=== PATIENT | female | born 1970 | race African-American/Black ===

== ENCOUNTER 2016-12-22 16:45 | Emergency (ER) | payer OTHER ==
[~2016-12-22] VITALS: Ht 154.9 cm; Wt 86.2 kg
[2016-12-22 17:19] LABS: BASO # 0.1 x10^3/uL (0.0-0.2); BASO % 1 % (0-3); EOS % 2 % (0-3); HEMATOCRIT 39.3 % (36.0-47.0); HEMOGLOBIN 12.9 g/dL (12.0-15.5); LYMPH # 3.4 x10^3/uL (1.0-4.8); LYMPH % 45 % (24-48); MEAN CORPUSCULAR HEMOGLOBIN 26 pg (25-35); MEAN CORPUSCULAR HGB CONC 33 g/dL (31-37); MEAN CORPUSCULAR VOLUME 80 fL (79-100); MONO % 7 % (0-9); NEUT % 45 % (31-73); PLATELET COUNT 284 x10^3/uL (140-400); RED BLOOD COUNT 4.91 x10^6/uL (3.50-5.40); RED CELL DISTRIBUTION WIDTH 14.2 % (11.5-14.5); WHITE BLOOD COUNT 7.5 x10^3/uL (4.0-11.0)
--- NOTE | 2016-12-22 17:19 | PHYS DOC ---
Adult General Chief Complaint Chief Complaint: CHEST PAIN HPI HPI Patient is a 46 year old female who presents to the ED with constant lower chest "heaviness" for about one week. She first noticed this a week ago, she does not recall what she was doing when it started. She did notice that if she bent over it seemed to get worse so she wondered if it was from her breasts being too heavy and she stopped bending over. The pain has not been severe but has been consistent for several days. She has not had any chest congestion, any shortness of air, cough, fever or chills. She's had no nausea but has been a little belchy. She did have this pain before quite a while ago, she can't remember when, the pain was worse, she was seen in an ER and she ended up having a stress test which was normal and they told her "it was stress". She states she was under a lot of stress at that time. She states she is under some stress at work right now. She is in good general health. She takes a cholesterol medicine daily. Review of Systems Review of Systems Constitutional: Denies fever or chills [] HENT: Denies nasal congestion Respiratory: Denies cough or shortness of breath [] Cardiovascular: As in history of present illness GI: Denies abdominal pain, nausea, vomiting, bloody stools or diarrhea [] : Denies dysuria or hematuria [] Musculoskeletal: Denies back pain or joint pain [] Integument: Denies rash or skin lesions [] Neurologic: Denies headache, focal weakness or sensory changes [] Allergies Allergies Allergies Coded Allergies Type Severity Reaction Last Updated Verified No Known Drug Allergies 12/22/16 No Physical Exam Physical Exam Constitutional: Well developed, well nourished, no acute distress, non-toxic appearance. It'll signs stable, alert, mentating normally, warm and dry. HENT: Normocephalic, atraumatic, bilateral external ears normal, nose normal. [ ] Eyes: conjunctiva normal, no discharge. [] Neck: Normal range of motion, no stridor. [] Cardiovascular:Heart rate regular rhythm, no murmur [] Lungs & Thorax: Bilateral breath sounds clear to auscultation [] Abdomen: Bowel sounds normal, soft, no tenderness, no masses, no pulsatile masses. No right upper quadrant tenderness, negative Mullins's. Skin: Warm, dry, no erythema, no rash. [] Extremities: No tenderness, no cyanosis, no clubbing, ROM intact, no edema. [] Neurologic: Alert and oriented X 3, normal motor function, no focal deficits noted. [] Current Patient Data Vital Signs Vital Signs Date Time Temp Pulse Resp B/P (MAP) Pulse Ox O2 Delivery O2 Flow Rate FiO2 12/22/16 17:26 74 17 123/77 (92) 98 Room Air 12/22/16 16:50 99.1 99.1 Lab Values Laboratory Tests Test 12/22/16 17:10 White Blood Count 7.5 x10^3/uL (4.0-11.0) Red Blood Count 4.91 x10^6/uL (3.50-5.40) Hemoglobin 12.9 g/dL (12.0-15.5) Hematocrit 39.3 % (36.0-47.0) Mean Corpuscular Volume 80 fL (79-100) Mean Corpuscular Hemoglobin 26 pg (25-35) Mean Corpuscular Hemoglobin Concent 33 g/dL (31-37) Red Cell Distribution Width 14.2 % (11.5-14.5) Platelet Count 284 x10^3/uL (140-400) Neutrophils (%) (Auto) 45 % (31-73) Lymphocytes (%) (Auto) 45 % (24-48) Monocytes (%) (Auto) 7 % (0-9) Eosinophils (%) (Auto) 2 % (0-3) Basophils (%) (Auto) 1 % (0-3) Neutrophils # (Auto) 3.4 x10^3uL (1.8-7.7) Lymphocytes # (Auto) 3.4 x10^3/uL (1.0-4.8) Monocytes # (Auto) 0.6 x10^3/uL (0.0-1.1) Eosinophils # (Auto) 0.1 x10^3/uL (0.0-0.7) Basophils # (Auto) 0.1 x10^3/uL (0.0-0.2) Sodium Level 139 mmol/L (136-145) Potassium Level 3.7 mmol/L (3.5-5.1) Chloride Level 103 mmol/L (98-107) Carbon Dioxide Level 28 mmol/L (21-32) Anion Gap 8 (6-14) Blood Urea Nitrogen 13 mg/dL (7-20) Creatinine 0.8 mg/dL (0.6-1.0) Estimated GFR (Cockcroft-Gault) 77.9 BUN/Creatinine Ratio 16 (6-20) Glucose Level 87 mg/dL (70-99) Calcium Level 9.2 mg/dL (8.5-10.1) Total Bilirubin 0.2 mg/dL (0.2-1.0) Aspartate Amino Transferase (AST) 26 U/L (15-37) Alanine Aminotransferase (ALT) 35 U/L (14-59) Alkaline Phosphatase 78 U/L (46-116) Creatine Kinase 264 U/L (26-192) H Creatine Kinase MB (Mass) 0.5 ng/mL (0.0-3.6) Creatine Kinase MB Relative Index 0.2 % (0-4) Troponin I Quantitative < 0.017 ng/mL (0.000-0.055) Total Protein 7.9 g/dL (6.4-8.2) Albumin 3.6 g/dL (3.4-5.0) Albumin/Globulin Ratio 0.8 (1.0-1.7) L Lipase 220 U/L (73-393) Laboratory Tests 12/22/16 17:10 Laboratory Tests 12/22/16 17:10 EKG EKG 12-lead EKG read by me. Sinus rhythm. Heart rate 94. There are no acute ST or T wave changes indicative of ischemia or infarction. No STEMI. 1654[] Radiology/Procedures Radiology/Procedures Two-view chest x-ray read by me. No acute abnormality.[] Course & Med Decision Making Course & Med Decision Making Pertinent Labs and Imaging studies reviewed. (See chart for details) 46-year-old female in good general health presents with 1 week of heaviness in the lower chest/epigastric area which has been constant. It sounds unlikely to be cardiac or gallbladder related in that it has been constant for several days without going away and remains unchanged and she is very stable. However, I would like to check a chest x-ray and labs in addition to EKG, she is agreeable to that plan. EKG, chest x-ray, labs are all unremarkable. I don't believe the patient's chest pain is cardiac because it has been constant for about a week without any cardiac enzyme or EKG changes. I discussed this with the patient and her . See instructions for plan. [] Jeannette Disclaimer Dragon Disclaimer This electronic medical record was generated, in whole or in part, using a voice recognition dictation system. Departure Departure Impression: Primary Impression: Non-cardiac chest pain Disposition: HOME, SELF-CARE Condition: STABLE Patient Instructions: Chest Pain (Nonspecific), [id number] Additional Instructions: Today, your chest x-ray, EKG, and labs are normal. As we discussed, I don't believe your symptoms are caused by heart pain. Sometimes, pain in this area can be from constipation. I suggest that you take a laxative such as milk of magnesia and see if that helps your symptoms. Other times, pain in this area could be from excess stomach acid. I recommend that you try an [id number] stomach acid medication such as ranitidine and see if that helps for a few days. If not better after the above, see your doctor for further evaluation. AKIL CRISTOBAL MD Dec 22, 2016 17:19
[2016-12-22 17:42] LABS: ALBUMIN 3.6 g/dL (3.4-5.0); ALBUMIN/GLOBULIN RATIO 0.8 (1.0-1.7); CALCIUM 9.2 mg/dL (8.5-10.1); CREATININE 0.8 mg/dL (0.6-1.0); GFR 77.9; POTASSIUM 3.7 mmol/L (3.5-5.1); TOTAL BILIRUBIN 0.2 mg/dL (0.2-1.0); TOTAL PROTEIN 7.9 g/dL (6.4-8.2)
[2016-12-22 17:53] LABS: CKMB MASS 0.5 ng/mL (0.0-3.6)
[2016-12-22 18:26] VITALS: BP 140/85
--- NOTE | 2016-12-22 18:35 | EKG ---
[facility] [address] [place] [address] Test Date: 2016-12-22 Test Time: 16:54:35 Pat Name: JOEY HORN Department: Room: Gender: F [employer] Person: : 1970 Requested By: AKIL CRISTOBAL Order Number: [id number] Reading MD: Ana Maria Portillo Measurements Intervals Pledger Rate: 94 P: 38 ME: 128 QRS: -4 QRSD: 74 T: 44 QT: 344 QTc: 435 Interpretive Statements SINUS RHYTHM LEFTWARD AXIS QRS(T) CONTOUR ABNORMALITY CONSIDER ANTEROLATERAL MYOCARDIAL DAMAGE Electronically Signed On 12-26-2016 15:29:28 CDT by Ana Maria Portillo
--- NOTE | 2016-12-23 08:19 | RAD ---
Chest, 2 views, 12/22/2016: History: Epigastric pain The heart size and pulmonary vascularity are normal. No pulmonary infiltrates are seen. There is no evidence of pleural fluid. IMPRESSION: No acute cardiopulmonary abnormality is detected.
== END 2016-12-22 18:40 | disposition home or self-care (01) ==
LOC: ER 16:45
DX: R07.89 Other chest pain (principal)
CPT/HCPCS: 36415; 71020; 80053; 82553; 83690; 84484; 85025; 93005; 99285-25